=== PATIENT | female | born 1975 | race Two or more races ===

== ENCOUNTER → 2017-06-12 | Outpatient (CLI) | payer MEDICAID | END | disposition home or self-care (01) | LOC: MAMMO 10:01 | DX: N63.20 Unspecified lump in the left breast, unspecified quadrant (principal); N63.10 Unspecified lump in the right breast, unspecified quadrant | CPT/HCPCS: 76642; G0204 ==

== ENCOUNTER → 2017-07-17 | Day surgery (SDC) | payer MEDICAID ==
[~2017-07-17] MED LIST: LIDOCAINE 1%/EPI 1:200,000 10 ML VIAL IJ ONE; SODIUM BICARBONATE 4% (2.4MEQ) 5ML VIAL IV ONE
== END | disposition home or self-care (01) ==
LOC: RAD 09:18
DX: D24.1 Benign neoplasm of right breast (principal)
CPT/HCPCS: 19083; 88305; A4648; J3490